=== PATIENT | female | born 1950 | race Caucasian/White ===

== ENCOUNTER → 2022-09-01 13:08 | Outpatient (CLI) | payer MEDICARE, OTHER, SELFPAY ==
[2022-09-01 15:00] LABS: Add Manual Diff / Slide Review NO; Basophils Absolute Auto 100 /uL (0-100); Basophils Percent Auto 1.2 % (0-2); Eosinophils Absolute Auto 100 /uL (0-450); Eosinophils Percent Auto 1.2 % (2-4); Hematocrit 38.5 % (36-46); Hemoglobin 12.8 g/dL (12.0-16.0); Lymphocytes Absolute Auto 1300 /uL (1100-4500); Lymphocytes Percent Auto 14.3 % (25-40); Mean Corpuscular HGB Conc 33.3 % (30-36); Mean Corpuscular Hemoglobin 26.2 PG (26-34); Mean Corpuscular Volume 78.8 fL (80-100); Monocytes Absolute Auto 800 /uL (0-900); Monocytes Percent Auto 8.9 % (3-14); Neutrophils Absolute Auto 6900 /uL (1500-7000); Neutrophils Percent Auto 74.4 % (50-75); Platelet Count 326 X10^3/uL (150-400); Red Blood Cell Count 4.88 X10^6/uL (4.0-5.2); Red Cell Distribution Width 15.8 % (11.6-14.8); White Blood Cell Count 9.2 X10^3/uL (4.5-11.0)
[2022-09-01 15:23] LABS: Hemoglobin A1C% w Est Avg Glu 5.7 % (4.0-6.0)
[2022-09-01 15:48] LABS: Alanine Aminotransferase 23 IU/L (<35); Albumin 4.7 g/dL (3.5-5.0); Albumin Globulin Ratio 1.8 (1.0-2.8); Alkaline Phosphatase 86 U/L (38-126); Aspartate Aminotransferase 24 IU/L (14-36); BUN Creatinine Ratio 13.8 (6-22); Bilirubin Total 0.2 mg/dL (0.2-1.3); Blood Urea Nitrogen 16 mg/dL (7-17); Calcium 9.9 mg/dL (8.4-10.2); Carbon Dioxide 22 mmol/L (22-32); Chloride 102 mmol/L (98-107); Estimated Glomerular Filt Rate 49 mL/min (>60); Globulin 2.6 g/dL (1.7-4.1); Glucose 98 mg/dL (80-110); HEMOLYSIS < 15 (0-50); Potassium 4.2 mmol/L (3.4-5.1); Sodium 138 mmol/L (137-145); Total Protein 7.3 g/dL (6.3-8.2)
[2022-09-01 16:14] LABS: TSH w/ Reflex to FT4 1.21 uIU/mL (0.47-4.68)
[2022-09-01 16:59] LABS: Creatinine Urine Random 149.5 mg/dL
[2022-09-01 17:03] LABS: Microalbumi Creatinin Ratio Ur 4.6 ug/mg CR (<30); Microalbumin Urine Random 0.7 mg/dL (0-1.6)
== END ==
PROVIDERS: PCP Student in an Organized Health Care Education/Training Program; Referring Provider Student in an Organized Health Care Education/Training Program; Visit Provider Student in an Organized Health Care Education/Training Program
DX: Z01.812 Encounter for preprocedural laboratory examination (principal); R73.9 Hyperglycemia, unspecified; I10 Essential (primary) hypertension; N18.30 Chronic kidney disease, stage 3 unspecified
CPT/HCPCS: 36415; 80053; 82043; 82570; 83036; 84443; 85025

== ENCOUNTER → 2022-10-12 12:34 | Outpatient (CLI) | payer MEDICARE, OTHER, SELFPAY ==
[2022-10-12 13:33] LABS: COVID19 -Nasal RAPID Negative (Negative)
== END ==
PROVIDERS: PCP Student in an Organized Health Care Education/Training Program; Referring Provider Orthopaedic Surgery; Visit Provider Orthopaedic Surgery
DX: Z20.822 Contact with and (suspected) exposure to COVID-19 (principal)
CPT/HCPCS: 87635; C9803

== ENCOUNTER → 2022-11-18 13:33 | Outpatient (CLI) | payer MEDICARE, OTHER, SELFPAY ==
[2022-11-18 14:22] LABS: Add Manual Diff / Slide Review NO; Basophils Absolute Auto 100 /uL (0-100); Basophils Percent Auto 1.1 % (0-2); Eosinophils Absolute Auto 200 /uL (0-450); Hematocrit 38.6 % (36-46); Hemoglobin 12.6 g/dL (12.0-16.0); Lymphocytes Absolute Auto 1700 /uL (1100-4500); Mean Corpuscular HGB Conc 32.7 % (30-36); Mean Corpuscular Hemoglobin 26.2 PG (26-34); Mean Corpuscular Volume 80.3 fL (80-100); Monocytes Absolute Auto 800 /uL (0-900); Monocytes Percent Auto 8.3 % (3-14); Neutrophils Absolute Auto 7000 /uL (1500-7000); Neutrophils Percent Auto 71.6 % (50-75); Platelet Count 289 X10^3/uL (150-400); Red Blood Cell Count 4.81 X10^6/uL (4.0-5.2); Red Cell Distribution Width 15.9 % (11.6-14.8); White Blood Cell Count 9.8 X10^3/uL (4.5-11.0)
[2022-11-18 14:36] LABS: BUN Creatinine Ratio 15.3 (6-22); Blood Urea Nitrogen 18 mg/dL (7-17); Calcium 9.3 mg/dL (8.4-10.2); Carbon Dioxide 22 mmol/L (22-32); Chloride 104 mmol/L (98-107); Estimated Glomerular Filt Rate 48 mL/min (>60); Glucose 100 mg/dL (80-110); HEMOLYSIS 27 (0-50); Potassium 3.7 mmol/L (3.4-5.1); Sodium 142 mmol/L (137-145)
== END ==
PROVIDERS: PCP Student in an Organized Health Care Education/Training Program; Referring Provider Orthopaedic Surgery; Visit Provider Orthopaedic Surgery
DX: E11.9 Type 2 diabetes mellitus without complications (principal); Z01.812 Encounter for preprocedural laboratory examination
CPT/HCPCS: 36415; 80048; 85025

== ENCOUNTER 2022-12-08 09:09 | Day surgery (SDC) | payer MEDICARE, OTHER, SELFPAY ==
[2022-12-02 11:56] VITALS: BMI 23.1
[2022-12-08] VITALS (9 sets, daily range): BP systolic 119–167; BP diastolic 70–91; PULSE 84–96; RESP 14–21; TEMP 36.4–36.9; O2SAT 96–98; BMI 22.3
--- NOTE | 2022-12-08 | DI.RAD.S_ITS ---
PROCEDURE: XR HIP W PEL IF DONE RT 2V INDICATIONS: TOTAL HIP TECHNIQUE: 3 intraoperative view(s) of the hip acquired. COMPAR[facility]: [facility] [place], XR PELVIS WITH LATERAL HIP RIGHT, 07/03/2022, 13:43. FINDINGS: Intraoperative guidance provided for right hip arthroplasty. Arthroplasty projects in the expected location. IMPRESSION: Intraoperative guidance provided. Dictated by: Leonel Chua M.D. on 12/08/2022 at 14:08 Approved by: Leonel Chua M.D. on 12/08/2022 at 14:09
--- NOTE | 2022-12-08 07:47 | DI.RAD.S_ITS ---
PROCEDURE: XR HIP W PEL IF DONE RT 2V INDICATIONS: right total hip arthroplasty TECHNIQUE: AP pelvis and lateral view of the right hip acquired. COMPARISON: [facility], CR, XR PELVIS WITH LATERAL HIP RIGHT, 07/03/2022, 13:43. [facility], CR, XR HIP W PEL IF DONE RT 2V, 12/08/2022, 13:55. FINDINGS: Bones: Patient is status post right hip arthroplasty, with hardware components in expected positions. The hip joint appears congruent. The visualized bony structures appear intact. Soft tissues: Overlying postoperative changes are noted. No suspicious soft tissue densities. Generator device at the right buttocks. Probable left baclofen pump. IMPRESSION: Expected postoperative appearance of the right hip arthroplasty. Dictated by: Leonel Chua M.D. on 12/08/2022 at 16:22 Approved by: Leonel Chua M.D. on 12/08/2022 at 16:24
[2022-12-08] MEDS: CELECOXIB 200 MG CAPSULE PO (09:35)
[2022-12-08] MEDS: ACETAMINOPHEN 325 MG TABLET 975 MG PO (09:35)
[2022-12-08] MEDS: VANCOMYCIN 1,000 MG/200 ML PIGGYBACK 200 MG IV (09:56)
[2022-12-08] MEDS: LACTATED RINGERS 1,000 ML 42 ML IV ×2 (10:12→13:28)
[2022-12-08 10:15] LABS: COVID19 -Nasal RAPID Negative (Negative)
--- NOTE | 2022-12-08 10:35 | PM.PREOP ---
Pre-operative Note Interval Note History & Physical reviewed/Exam performed by Physician: Yes Changes to H&P: No
--- NOTE | 2022-12-08 10:35 | PM.OP.1 ---
Operative Date/Time/Diagnoses Date of procedure: 12/08/22 Time of procedure: 11:20 Pre-op diagnosis: Right hip OA Post-op diagnosis: same Procedure & Clinicians Procedure: Right total hip arthroplasty anterior approach Same procedure as scheduled: Yes Indications: The patient has had progressively worsening right hip pain with radiographic changes consistent with arthritis. Non-operative management has failed and the patient has requested total hip replacement. The risks, benefits and alternatives to surgery were discussed with the patient prior to proceeding. Risks discussed included, but were not limited to, failure to relieve pain, leg length discrepancy, dislocation, stiffness, infection, nerve damage, deep venous thrombosis, pulmonary embolism, stroke, coma, heart attack, permanent paralysis and , as well as the potential need for eventual revision of the prosthetic. Surgeon: Soo Howe Coin Teller: Cher Jensen Anesthesia Type: General and Spinal Operative Notes Findings: Severe right hip OA Closure Type: primary Specimen(s): none sent Prosthetic devices, grafts, tissues, transplants, or devices: Howe and nephew anthology standard offset size 3 femur, neutral poly liner, 32 x -3 cobalt chrome head, 50 mm R3 cup, one 6.5 mm screw Estimated Blood Loss (mL): 250 Blood products transfused: none Procedure in detail: The patient was brought to the operating room. Patient was carefully positioned in the supine position. Time-out was performed and antibiotics were given. Anesthesia was induced. She was positioned in the on the table in order to allow hyperextension of the hip. The right lower extremity was prepped and draped in a standard sterile fashion. An anterior right hip incision was made 1 fingerbreadth lateral to the anterior superior iliac spine and extended distally towards the greater trochanter. Dissection was carried out through skin and subcutaneous tissues. Superficial hemostasis was achieved. The fascia over the tensor fascia velia was defined and incised with a knife. Two Allis clamps were used to grasp the fascia. Tensor fascia velia was retracted laterally. A gelpi retractor was placed. Dissection was carried out down along the neck. The circumflex vessels were carefully identified and cauterized with the Aqua Mantis. There was good visualization of the femoral neck. A Cobra was placed superior to the neck and the gluteus fibers were carefully stripped from that superior aspect of the capsule. A 2nd retractor was placed along the inferior aspect of the neck. The rectus insertion along the capsule was partially released. A 3rd retractor that was then gently placed over the rim of the acetabulum under the rectus. Capsule was carefully incised and released from the intertrochanteric line circumferentially superior to the mid sagittal line and inferiorly to the mid sagittal line until the lesser trochanter was palpable. A tag stitch was placed both in the superior and inferior limb of the capsular insertion. Along the acetabulum capsule was also released up to the mid sagittal 12:00 position. A portion of the labrum was resected. A saw was used to perform an osteotomy at the level of the intertrochanteric line and the junction of the superior femoral neck leaving approximately 1 finger breath of residual inferior neck above the lesser trochanter. A 2nd cut was made along the femoral neck at the base of the head and a napkin ring of neck was removed. Corkscrew was placed in the femoral head and the head was removed without difficulty. Retractors were then repositioned around the acetabulum. Residual labrum was resected and additional osteophytes were removed. A reamer that was 4 mm below the templated size was placed by hand in the acetabulum and it was reamed to centralize the acetabulum. It was then reamed up to 2 under the templated size and fluoroscopy was brought in to confirm the position of the reaming and depth of reaming. I reamed 1 under the anticipate size. A trial cup was placed and noted that it was appropriately sized and fluoroscopy confirmed position and depth. The component was open and inserted without difficulty fluoroscopic imaging was used to confirm that the cup had been adequately seated and was well positioned. It was further stabilized with a single screw. Neutral poly liner was placed. The cup was tested and noted to be stable. Attention was then directed to the femur. The femur was gently hyperextended additional capsular release was performed as needed in order to allow adequate visualization of the proximal femur with elevation of the femur. Patient was placed in a hyperextended slightly adducted position with maximum external rotation. Box osteotome was used to check for any residual neck as well as sclerotic bone along the trochanter. [place] pepper was placed in the femur. Additional broaching was performed. Canal finder was used to determine the alignment of the canal and position. Size 1 broach was placed. The canal was then appropriately broached up to the templated size as long as there was adequate stability of the broach and serial advancement of the broach without excessive impingement. Specific attention was directed at avoiding varus attempting to direct the distal aspect of the broach more anteriorly and avoiding excessive anteversion. Trial reduction showed acceptable range of motion, good stability, no posterior impingement, taoist of leg length and appropriate lateral shuck. I also hyperflexed the hip and checked that there was no impingement anteriorly and there was good stability with flexion, adduction and internal rotation. Marcaine and Exparel were injected. The stem was placed without difficulty. Repeat trial reduction and x-ray showed acceptable overall position, length, and no evidence of the femoral fracture. Final head was placed. Wound was meticulously irrigated with normal saline. The hip was reduced and additional Exparel and Marcaine were injected. The capsule was closed with interrupted nonabsorbable sutures. The fascia of the tensor was closed with interrupted and running Vicryl. No drain was placed. Any tensor fascia velia muscle that appeared to be contused or injured which was a minimal amount was carefully resected. Capsule around the tensor was injected with Exparel and Marcaine. The skin was closed with barbed stitches for the subcutaneous tissue and skin. We also used surgical glue. The wound was dressed sterilely. Brief Betadine soak was also used and was meticulously irrigated with normal saline. Patient was transferred to recovery room in satisfactory condition. Complications: none Post-operative Condition: stable Disposition: Acute Care Plan for aftercare: The patient will be maintained on a standard total hip replacement protocol with weight bearing as tolerated and anterior hip precautions. The patient will receive Xarelto and sequential compression devices for DVT prophylaxis. The patient will be discharged home when safe for the home environment.
[2022-12-08] MEDS: CEFAZOLIN 2 GM/100 ML PREMIX 100 ML IV ×2 (11:30→17:31)
--- NOTE | 2022-12-08 11:58 | SUR.OPER ---
Supine on padded [place] table with bilateral legs secured in padded positioning boots and suspended in positioning spars, operative leg in traction per surgeon. Head on one pillow. Arm on non-operative side secured on padded armboard <90 degrees abduction. Arm on RIGHT side padded and resting across chest then secured with tape over sheet. Padded perineal post in place per surgeon.
[2022-12-08] MEDS: BUPIVACAINE LIPOSOME 266 MG/20 ML VIAL INJ (12:05)
[2022-12-08] MEDS: BUPIVACAINE 0.5% W/ EPI (PF) 30 ML VIAL INJ (12:07)
[2022-12-08] MEDS: SODIUM CHLORIDE IRRIG SOLUTION 250 ML, POVIDONE-IODINE SPONGE STICKS 1 APPLIC IRR (13:28)
[2022-12-08] MEDS: hydrOXYzine 50 MG/ML INJ 25 MG IM (14:20)
[2022-12-08] MEDS: OXYCODONE IR 5 MG TABLET 10 MG PO (14:22)
[2022-12-08] MEDS: ONDANSETRON 4 MG/2 ML INJ IV (14:25)
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
[2022-12-08] MEDS: LACTATED RINGERS 1,000 ML 125 ML IV (16:03)
[2022-12-08] MEDS: OXYCODONE IR 10 MG TABLET PO (16:03)
--- NOTE | 2022-12-08 16:23 | PC.NURSE ---
Addendum entered by Luciano Molina R.N. 12/08/22 18:44: Pt cleared by PT, discussed D/c with Dr. Howe. Pt readied and escorted to car at 18:00 and in the care of friend. Addendum entered by Luciano Molina R.N. 12/08/22 17:01: Pt asking and expecting to go home tonight. Waiting to hear from Dr. Howe. Original Note: Pt arrived via PACU accompanied by RN. Pt alert and aware of transfer.Right hip dressing CDI. HORNE's had oxy and vistaril prior to arrival as well as another dose once admitted. Pt has a continuous Morphine pump that is running as well as a nerve stimulator which is not running. Pt placed in restful position, nodding off when not answering admit questions. Pt sats 92% on room air. Pt working with PT doing stairs presently.
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
== END 2022-12-08 18:00 | disposition home or self-care (01) ==
LOC: OR 09:10 → AC 09:10
PROVIDERS: PCP Student in an Organized Health Care Education/Training Program; Referring Provider Orthopaedic Surgery; Visit Provider Orthopaedic Surgery
PROC: (CPT 27130; principal; 2022-12-08 10:45)
DX: M16.11 Unilateral primary osteoarthritis, right hip (principal); Z20.822 Contact with and (suspected) exposure to COVID-19; Z86.711 Personal history of pulmonary embolism
CPT/HCPCS: 27130; 73502; 76000; 87635; 97116; 97161; 97530; C1776; C9803; C9290; J0690; J1100; J1170; J2405; J2704; J3010; J3410